=== PATIENT | female | born 1950 | race Caucasian/White ===

== ENCOUNTER 2016-12-18 12:27 | Emergency (ER) | payer MEDICARE, OTHER ==
[2016-12-18 12:41] VITALS: BP 119/72; PULSE 87; RESP 16; TEMP 97.4
--- NOTE | 2016-12-18 12:41 | ED ---
Lower Extremity Injury HPI - General Stated Complaint: ankle injury Time Seen by Provider: 12/18/16 12:31 Source: RN notes reviewed, old records reviewed - History of Present Illness Initial Comments: This is a 66-year-old female presenting to the emergency Department chief complaint of right ankle pain and swelling. Patient reports that she was walking up with to see her foot doctor for her chronic bunions. Patient reports that when she was stepping up to their office she didn't realize there is a step and tripped and rolled her ankle. Patient reports that she felt a pop. She does have a previous history of surgery of that ankle. She reports that the surgery was done in [address] [place], in which she had multiple pins placed.. She does not know the physician who stated this. Patient denies any peripheral paresthesias. She arrives to the EMS. EMS reports good dorsalis pedis pulses and she did have a splint applied at the time. Patient reports that there is difficulty with bearing weight over the ankle. She states initially she was unable to move it but upon arriving to the emergency department she does have some range of motion with lateral flexion and extension of the ankle.Patient denies any recent fever, chills, shortness of breath, chest pain, back pain, abdominal pain, nausea vomiting, numbness or tingling, dysuria or hematuria, constipation or diarrhea, headaches or visual changes, or any other current symptoms - Related Data Previous Rx's Medication Instructions Recorded HYDROcodone/APAP 5-325MG [[place] 1 tab PO Q6HR PRN #15 tab 12/18/16 5-325] Allergies Allergy/AdvReac Type Severity Reaction Status Date / Time Penicillins Allergy Unknown Verified 12/18/16 12:41 Review of Systems ROS Statement: Those systems with pertinent positive or pertinent negative responses have been documented in the HPI. ROS Other: All systems not noted in ROS Statement are negative. Past Medical History History of Any Multi-Drug Resistant Organisms: MRSA Date of last positivie culture/infection: 10/22/16 MDRO Source:: buttock General Exam - General Exam Comments Initial Comments: This is a 66-year-old female. Patient does not appear to be in any acute distress. General appearance: alert, in no apparent distress Head exam: Present: atraumatic, normocephalic, normal inspection Eye exam: Present: normal appearance, PERRL, EOMI. Absent: scleral icterus, conjunctival injection, periorbital swelling ENT exam: Present: normal exam, mucous membranes moist Neck exam: Present: normal inspection. Absent: tenderness, meningismus, lymphadenopathy Respiratory exam: Present: normal lung sounds bilaterally. Absent: respiratory distress, wheezes, rales, rhonchi, stridor Cardiovascular Exam: Present: regular rate, normal rhythm, normal heart sounds. Absent: systolic murmur, diastolic murmur, rubs, gallop, clicks GI/Abdominal exam: Present: soft, normal bowel sounds. Absent: distended, tenderness, guarding, rebound, rigid Extremities exam: Present: normal inspection, normal capillary refill. Absent: full ROM, tenderness, pedal edema, joint swelling, calf tenderness Right Knee exam: Present: normal inspection, full ROM Lower Leg exam: Present: normal inspection, full ROM Ankle exam: Present: tenderness ( reports tenderness and swelling over the lateral malleolus.), swelling. Absent: normal inspection (Patient has evidence of scars from previous ankle surgeries.), full ROM (Patient has difficulty with flexion and extension of the ankle due to pain.) Foot/Toe exam: Present: normal inspection, full ROM Neurovascular tendon exam: Present: no vascular compromise Back exam: Present: normal inspection Neurological exam: Present: alert, oriented X3, CN II-XII intact Psychiatric exam: Present: normal affect, normal mood Skin exam: Present: warm, dry, intact, normal color. Absent: rash Course Vital Signs 12/18/16 12:32 Temperature 97.4 F L Pulse Rate 87 Respiratory 16 Rate Blood Pressure 119/72 O2 Sat by Pulse 97 Oximetry Procedures - Orthopedic Splinting/Casting Injury #1 Side: right Lower Extremity Injury Location: foot Lower Extremity Immobilizer: posterior splint Other Orthopedic Equipment: crutches Medical Decision Making - Medical Decision Making This is a 66-year-old female presenting to the emergency Department chief complaint of right ankle pain and swelling. Patient reports that she was walking up with to see her foot doctor for her chronic bunions. Patient reports that when she was stepping up to their office she didn't realize there is a step and tripped and rolled her ankle. Patient reports that she felt a pop. She does have a previous history of surgery of that ankle. She reports that the surgery was done in [address] [place], in which she had multiple pins placed.. She does not know the physician who stated this. Patient denies any peripheral paresthesias. She arrives to the EMS. EMS reports good dorsalis pedis pulses and she did have a splint applied at the time. Patient reports that there is difficulty with bearing weight over the ankle. Patient has evidence of a mildly displaced fifth metatarsal fracture. Patient was placed in a posterior splint and return for crutches and pain medication. Discussed following up with orthopedic physician. Patient agrees to treatment plan will comply. Return parameters were discussed. - Radiology Data Radiology results: report reviewed Mildly displaced fracture of the base of the fifth metatarsal. Evidence of remote trauma. Previous surgeries noted with extensive soft tissue edema. Well -corticated densities adjacent to the lateral malleolus is compatible with remote trauma. There is a fracture involving the base of the fifth metatarsal. Tiny calcaneal spurs noted. Disposition Clinical Impression: Nondisplaced fracture of fifth right metatarsal bone Disposition: HOME SELF-CARE Condition: Good Instructions: Foot Fracture in Adults (ED) Additional Instructions: Knives rest, ice, elevate extremity. Return to the emergency department if any alarming signs or symptoms occur. Patient was to take pain medication and anti- inflammatory medication. Follow-up with orthopedic associates. Prescriptions: HYDROcodone/APAP 5-325MG [[place] 5-325] 1 tab PO Q6HR PRN #15 tab PRN Reason: Pain Referrals: Sarmad Godfrey MD [Primary Care Provider] - 1-2 days Albert Rodriguez DO [Doctor of Osteopathic Medicine] - 1-2 days Time of Disposition: 13:06
--- NOTE | 2016-12-18 12:56 | XR ---
EXAMINATION TYPE: XR ankle complete RT DATE OF EXAM: 12/18/2016 COMPARISON: NONE HISTORY: Pain FINDINGS: Three views of the ankle demonstrate the ankle mortise to be intact and symmetric. Previous surgery i s noted with extensive soft tissue edema. Well-corticated density adjacent to lateral malleolus is co mpatible with remote trauma. Appears to be a fracture involving the base of the fifth metatarsal. Tin y calcaneal spur noted. IMPRESSION: 1. Mildly displaced fracture base fifth metatarsal 2. Remote trauma.
--- NOTE | 2016-12-18 12:59 | XR ---
EXAMINATION TYPE: XR foot complete RT DATE OF EXAM: 12/18/2016 COMPARISON: NONE HISTORY: Pain TECHNIQUE: Three views are submitted. FINDINGS: Previous surgery involving the ankle joint. Narrowing the first tarsal metatarsal joint and first MTP joint. Arthropathy of all MTP joints. Chronic appearing subluxations of the second third proximal ph alanx relative to the metatarsal. Mild displaced fracture base fifth metatarsal. IMPRESSION: 1. Mildly displaced fracture base fifth metatarsal
== END 2016-12-18 14:07 | disposition home or self-care (01) ==
LOC: EC 12:27
DX: S92.354A Nondisplaced fracture of fifth metatarsal bone, right foot, initial encounter for closed fracture (principal); W10.9XXA Fall (on) (from) unspecified stairs and steps, initial encounter; Y92.89 Other specified places as the place of occurrence of the external cause; M21.619 Bunion of unspecified foot; Z88.0 Allergy status to penicillin; Z86.14 Personal history of Methicillin resistant Staphylococcus aureus infection
CPT/HCPCS: 29515; 99284

== ENCOUNTER 2018-06-29 18:44 | Emergency (ER) | payer MEDICARE, OTHER ==
[2018-06-29 19:35] LABS: Appearance,Urine Turbid (Clear); Bilirubin,Urine Negative (Negative); Blood,Urine Large (Negative); Color,Urine Dark Red; Glucose,Urine (UA) Negative (Negative); Ketones,Urine Negative (Negative); Leukocyte Esterase,Urine Large (Negative); Mucus,Urine Moderate /hpf; Nitrite,Urine Negative (Negative); Protein,Urine 2+ (Negative); RBC,Urine >182 /hpf (0-5); Urobilinogen,Urine <2.0 mg/dL (<2.0)
--- NOTE | 2018-06-29 19:42 | ED ---
Female Urogenital HPI - General Chief complaint: Urogenital Stated complaint: Blood in urine Time Seen by Provider: 06/29/18 19:09 Source: patient, RN notes reviewed Mode of arrival: ambulatory Limitations: no limitations - History of Present Illness Initial comments: 68-year-old female sent emergency from chief complaint of hematuria. Patient states he feels that she has urinary tract infection. Patient does note have dysuria associated with. Patient complains of left flank pain. Patient has no history kidney stones, no blood thinners at this time. Patient has fever, chills, chest pain, headache, dizziness, or chills. Patient states nothing pain feel better or worse at this time. - Related Data Home Medications Medication Instructions Recorded Confirmed Aspirin [Asotin Aspirin EC] 81 mg PO DAILY 06/29/18 06/29/18 [place] 400 - 900 mg PO DAILY 06/29/18 06/29/18 Levothyroxine Sodium [Synthroid] 75 mcg PO DAILY 06/29/18 06/29/18 Losartan-Hctz 50-12.5 mg [Hyzaar 1 tab PO DAILY 06/29/18 06/29/18 50-12.5] buPROPion HCL [Wellbutrin XL] 150 mg PO DAILY 06/29/18 06/29/18 Previous Rx's Medication Instructions Recorded Ciprofloxacin HCl [Cipro] 500 mg PO Q12HR #14 tablet 06/29/18 Allergies Allergy/AdvReac Type Severity Reaction Status Date / Time Penicillins Allergy Unknown Verified 06/29/18 19:15 Review of Systems ROS Statement: Those systems with pertinent positive or pertinent negative responses have been documented in the HPI. ROS Other: All systems not noted in ROS Statement are negative. Past Medical History Past Medical History: Asthma, Hypertension, Thyroid Disorder History of Any Multi-Drug Resistant Organisms: MRSA Date of last positivie culture/infection: 10/22/16 MDRO Source:: buttock Past Surgical History: Appendectomy, Cholecystectomy, Orthopedic Surgery, Tubal Ligation Additional Past Surgical History / Comment(s): ankle surgery, bilateral knees, Past Psychological History: Anxiety Smoking Status: Never smoker Past Alcohol Use History: Occasional Past Drug Use History: None Reported General Exam Limitations: no limitations General appearance: alert, in no apparent distress Head exam: Present: atraumatic, normocephalic, normal inspection Neck exam: Present: normal inspection. Absent: tenderness, meningismus, lymphadenopathy Respiratory exam: Present: normal lung sounds bilaterally. Absent: respiratory distress, wheezes, rales, rhonchi, stridor Cardiovascular Exam: Present: regular rate, normal rhythm, normal heart sounds. Absent: systolic murmur, diastolic murmur, rubs, gallop, clicks GI/Abdominal exam: Present: soft, tenderness (Mild suprapubic), normal bowel sounds. Absent: distended, guarding, rebound, rigid Back exam: Absent: CVA tenderness (R), CVA tenderness (L) Skin exam: Present: warm, dry, intact, normal color. Absent: rash Course Vital Signs 06/29/18 18:48 Temperature 98.3 F Pulse Rate 103 H Respiratory 18 Rate Blood Pressure 129/79 O2 Sat by Pulse 98 Oximetry Medical Decision Making - Medical Decision Making 68-year-old female presented for dysuria. Patient's found to have urinary tract infection, hemorrhagic urinary tract infection. Patient we started on antibiotics. Patient states that she may have had a reaction to Bactrim in the past. Patient we given ciprofloxacin at this time. Patient will follow-up with PCP we did discuss that she needs to have recheck after course antibiotics to make sure hematuria has resolved if not that she needs a follow-up with urology. Patient did have complete workup including labs, urinalysis and CT. No evidence of mass or renal stone. Return parameters were discussed. - Lab Data Result diagrams: 06/29/18 19:55 06/29/18 19:55 Lab Results 06/29/18 06/29/18 06/29/18 Range/Units 19:00 19:55 19:55 WBC 16.0 H (3.8-10.6) k/uL RBC 4.13 (3.80-5.40) m/uL Hgb 13.2 (11.4-16.0) gm/dL Hct 38.6 (34.0-46.0) % MCV 93.5 (80.0-100.0) fL MCH 32.0 (25.0-35.0) pg MCHC 34.2 (31.0-37.0) g/dL RDW 13.2 (11.5-15.5) % Plt Count 299 (150-450) k/uL Neutrophils % 81 % Lymphocytes % 10 % Monocytes % 5 % Eosinophils % 3 % Basophils % 0 % Neutrophils # 12.9 H (1.3-7.7) k/uL Lymphocytes # 1.6 (1.0-4.8) k/uL Monocytes # 0.9 (0-1.0) k/uL Eosinophils # 0.4 (0-0.7) k/uL Basophils # 0.1 (0-0.2) k/uL PT (9.0-12.0) sec INR (<1.2) APTT (22.0-30.0) sec Sodium 138 (137-145) mmol/L Potassium 4.0 (3.5-5.1) mmol/L Chloride 100 (98-107) mmol/L Carbon Dioxide 30 (22-30) mmol/L Anion Gap 8 mmol/L BUN 14 (7-17) mg/dL Creatinine 0.80 (0.52-1.04) mg/dL Est GFR (CKD-EPI)AfAm 88 (>60 ml/min/1.73 sqM) Est GFR (CKD-EPI)NonAf 77 (>60 ml/min/1.73 sqM) Glucose 99 (74-99) mg/dL Calcium 9.3 (8.4-10.2) mg/dL Total Bilirubin 0.3 (0.2-1.3) mg/dL AST 24 (14-36) U/L ALT 24 (9-52) U/L Alkaline Phosphatase 107 (38-126) U/L Total Protein 6.8 (6.3-8.2) g/dL Albumin 4.2 (3.5-5.0) g/dL Lipase 75 (23-300) U/L Urine Color Dark Red Urine Appearance Turbid H (Clear) Urine pH 6.0 (5.0-8.0) Ur Specific [place] 1.013 (1.001-1.035) Urine Protein 2+ H (Negative) Urine Glucose (UA) Negative (Negative) Urine Ketones Negative (Negative) Urine Blood Large H (Negative) Urine Nitrite Negative (Negative) Urine Bilirubin Negative (Negative) Urine Urobilinogen <2.0 (<2.0) mg/dL Ur Leukocyte Esterase Large H (Negative) Urine RBC >182 H (0-5) /hpf Urine WBC >182 H (0-5) /hpf Urine WBC Clumps Many H (None) /hpf Urine Mucus Moderate H (None) /hpf 06/29/18 Range/Units 19:55 WBC (3.8-10.6) k/uL RBC (3.80-5.40) m/uL Hgb (11.4-16.0) gm/dL Hct (34.0-46.0) % MCV (80.0-100.0) fL MCH (25.0-35.0) pg MCHC (31.0-37.0) g/dL RDW (11.5-15.5) % Plt Count (150-450) k/uL Neutrophils % % Lymphocytes % % Monocytes % % Eosinophils % % Basophils % % Neutrophils # (1.3-7.7) k/uL Lymphocytes # (1.0-4.8) k/uL Monocytes # (0-1.0) k/uL Eosinophils # (0-0.7) k/uL Basophils # (0-0.2) k/uL PT 9.8 (9.0-12.0) sec INR 0.9 (<1.2) APTT 25.4 (22.0-30.0) sec Sodium (137-145) mmol/L Potassium (3.5-5.1) mmol/L Chloride (98-107) mmol/L Carbon Dioxide (22-30) mmol/L Anion Gap mmol/L BUN (7-17) mg/dL Creatinine (0.52-1.04) mg/dL Est GFR (CKD-EPI)AfAm (>60 ml/min/1.73 sqM) Est GFR (CKD-EPI)NonAf (>60 ml/min/1.73 sqM) Glucose (74-99) mg/dL Calcium (8.4-10.2) mg/dL Total Bilirubin (0.2-1.3) mg/dL AST (14-36) U/L ALT (9-52) U/L Alkaline Phosphatase (38-126) U/L Total Protein (6.3-8.2) g/dL Albumin (3.5-5.0) g/dL Lipase (23-300) U/L Urine Color Urine Appearance (Clear) Urine pH (5.0-8.0) Ur Specific [place] (1.001-1.035) Urine Protein (Negative) Urine Glucose (UA) (Negative) Urine Ketones (Negative) Urine Blood (Negative) Urine Nitrite (Negative) Urine Bilirubin (Negative) Urine Urobilinogen (<2.0) mg/dL Ur Leukocyte Esterase (Negative) Urine RBC (0-5) /hpf Urine WBC (0-5) /hpf Urine WBC Clumps (None) /hpf Urine Mucus (None) /hpf Disposition Clinical Impression: Hemorrhagic cystitis Disposition: HOME SELF-CARE Condition: Stable Instructions: Urinary Tract Infection in Women (ED) Additional Instructions: Please return to the Emergency Department if symptoms worsen or any other concerns. Prescriptions: Ciprofloxacin HCl [Cipro] 500 mg PO Q12HR #14 tablet Is patient prescribed a controlled substance at d/c from ED?: No Referrals: Sarmad Godfrey MD [Primary Care Provider] - 1-2 days Time of Disposition: 21:13
[2018-06-29 19:45] LABS: Specific Gravity,Urine 1.013 (1.001-1.035)
[2018-06-29 20:13] LABS: Basophils # (A) 0.1 k/uL (0-0.2); Basophils % (A) 0 %; Eosinophils # (A) 0.4 k/uL (0-0.7); Eosinophils % (A) 3 %; HCT 38.6 % (34.0-46.0); HGB 13.2 gm/dL (11.4-16.0); Lymphocytes # (A) 1.6 k/uL (1.0-4.8); Lymphocytes % (A) 10 %; MCHC 34.2 g/dL (31.0-37.0); MCV 93.5 fL (80.0-100.0); Mean Platelet Volume 7.3; Monocytes # (A) 0.9 k/uL (0-1.0); Monocytes % (A) 5 %; Neutrophils # (A) 12.9 k/uL (1.3-7.7); Neutrophils % (A) 81 %; Platelet Count 299 k/uL (150-450); RBC 4.13 m/uL (3.80-5.40); RDW 13.2 % (11.5-15.5)
[2018-06-29 20:21] LABS: INR 0.9 (<1.2); Partial Thromboplastin Time 25.4 sec (22.0-30.0); Prothrombin Time 9.8 sec (9.0-12.0)
[2018-06-29 20:22] LABS: Albumin 4.2 g/dL (3.5-5.0); Calcium 9.3 mg/dL (8.4-10.2); Total Bilirubin 0.3 mg/dL (0.2-1.3); Total Protein 6.8 g/dL (6.3-8.2)
--- NOTE | 2018-06-29 20:37 | CT ---
EXAMINATION TYPE: CT abdomen pelvis wo con DATE OF EXAM: 06/29/2018 COMPARISON: None HISTORY: hematuria CT DLP: 520.4 mGycm Automated exposure control for dose reduction was used. TECHNIQUE: Helical acquisition of images was performed from the lung bases through the pelvis. FINDINGS: Lung bases are clear of infiltrate. There is no pleural effusion. Heart size is normal. There is no p ericardial effusion. Stomach appears fairly normal. Liver shows no focal defect. Bile ducts are not d ilated. Spleen appears normal. There is no pancreatic mass. There are clips from cholecystectomy. There is no adrenal mass. Kidneys show normal size and contour. There is no hydronephrosis. There is no retroperitoneal adenopathy. Bladder distends smoothly. There is no free fluid in the pelvis. There is no inguinal hernia. Uterus is anteverted. There is some mild calcification on the anterior wall o f the uterus that could relate to minimal fibroid or degenerative change. There are calcified phlebol iths in the pelvis. There is no evidence of free air. I see no intestinal wall thickening. There is no mesenteric edema o r adenopathy. Appendix is not definitely seen. There is no sign of appendicitis. There are spondyloti c changes in the lumbar spine with vacuum disc and disc space narrowing at L4-5 and L5-S1. There is n o lumbar compression fracture. There is moderately severe L3-4 spinal stenosis due to facet arthropat hy and minimal L3-4 subluxation deformity. IMPRESSION: NO SIGN OF ACUTE ABDOMEN AND PELVIS. NO RENAL STONE OR OBSTRUCTION. SPECIFICALLY I SEE NO EVIDENCE OF OBSTRUCTION OF THE LEFT KIDNEY. THE LEFT URETER IS NOT DILATED. THERE ARE SOME CALCIFICATIONS IN THE RETROPERITONEUM ON THE LEFT SIDE THAT ARE THOUGHT TO BE VASCULAR. L3-4 MODERATE BONY SPINAL STENOSIS.
[2018-06-29] MEDS ORDERED: CIPROFLOXACIN HCL 500 MG TAB PO STA (21:07)
[2018-06-29 21:28] VITALS: BP 131/80; PULSE 87; RESP 16; TEMP 98.1
== END 2018-06-29 21:26 | disposition home or self-care (01) ==
LOC: EC 18:44
DX: N30.91 Cystitis, unspecified with hematuria (principal); I10 Essential (primary) hypertension; E07.9 Disorder of thyroid, unspecified; F41.9 Anxiety disorder, unspecified; Z86.14 Personal history of Methicillin resistant Staphylococcus aureus infection; Z90.49 Acquired absence of other specified parts of digestive tract; Z98.51 Tubal ligation status; Z98.890 Other specified postprocedural states; Z79.82 Long term (current) use of aspirin; Z79.890 Hormone replacement therapy; Z79.899 Other long term (current) drug therapy; Z88.0 Allergy status to penicillin
CPT/HCPCS: 36415; 74176; 80053; 81001; 83690; 85025; 85610; 85730; 87077; 87086; 87186; 99284

== ENCOUNTER 2020-09-20 08:45 | Day surgery (SDC) | payer MEDICARE ==
[2020-09-18 10:15] VITALS: BMI 26.8
[~2020-09-20 08:45] MED LIST: LACTATED RINGERS 1,000 ML IV SCH; LIDOCAINE 1% (10MG/ML) FOR IV START INTRADERMA PRN
[2020-09-20 09:35] VITALS: RESP 16; TEMP 98.2
[2020-09-20] MEDS ORDERED: PROPOFOL 10 MG/ML 20 ML VIAL IV ONE (09:56)
--- NOTE | 2020-09-20 10:13 | P.PCN ---
Date of Procedure: 09/20/20 Procedure(s) Performed: BRIEF HISTORY: Patient is a 70-year-old pleasant white female scheduled for an elective colonoscopy as a part of screening for colorectal neoplasia. PROCEDURE PERFORMED: Colonoscopy. PREOPERATIVE DIAGNOSIS: Screening for colon cancer. IV sedation per Anesthesia. PROCEDURE: After informed consent was obtained, the patient, was brought into the endoscopy unit. IV sedation was administered by Anesthesia under continuous monitoring. Digital rectal examination was normal. Initially the Olympus CF-160 flexible video colonoscope was then inserted in the rectum, gradually advanced into the cecum without any difficulty. Careful examination was performed as the scope was gradually being withdrawn. Ileocecal valve and the appendiceal orifice were visualized and appeared normal. Prep was excellent. Mucosa of the cecum, ascending colon, transverse colon, descending colon, sigmoid colon, and rectum appeared normal. Scattered sigmoid diverticulosis. Retroflexion was performed in the rectum and no lesions were seen. The patient tolerated the procedure well. IMPRESSION: Normal-appearing colon from rectum to cecum with no evidence of colorectal neoplasia . Scattered sigmoid diverticulosis. RECOMMENDATIONS: Findings of this examination were discussed with the patient as well as her family. She was advised to have a repeat screening colonoscopy in 10 years.
[2020-09-20 10:35] VITALS: BP 106/73; PULSE 77
== END 2020-09-20 10:48 | disposition home or self-care (01) ==
LOC: MERGE 08:45 → ORWHC2ENDO 08:45
PROVIDERS: ATTEND Internal Medicine Gastroenterology
DX: Z12.11 Encounter for screening for malignant neoplasm of colon (principal); K57.30 Diverticulosis of large intestine without perforation or abscess without bleeding; I10 Essential (primary) hypertension; J45.909 Unspecified asthma, uncomplicated; Z86.73 Personal history of transient ischemic attack (TIA), and cerebral infarction without residual deficits; E07.9 Disorder of thyroid, unspecified; Z90.710 Acquired absence of both cervix and uterus; Z98.890 Other specified postprocedural states; Z79.890 Hormone replacement therapy; Z79.899 Other long term (current) drug therapy; Z88.0 Allergy status to penicillin; Z88.2 Allergy status to sulfonamides
CPT/HCPCS: J2704; G0121; 45378